=== PATIENT | female | born 1955 | race Caucasian/White ===

== ENCOUNTER → 2016-03-01 | Outpatient (CLI) | payer OTHER ==
--- NOTE | 2016-03-01 12:17 | US ---
Ultrasound Left Axilla HISTORY: Lump x3 months COMPARISON: Mammogram September 01, 2015 FINDINGS: On physical examination there is some subtle thickening in the upper portion of the medial arm just lateral to the axilla. Ultrasound of this area reveals only normal tissue and vascular struc tures. No adenopathy, cyst or solid mass lesion is identified. I also performed ultrasound of the lat eral left breast which was negative. Impression: No sonographic correlate to the "mild thickening". This can be managed clinically. I ment ioned to the patient that if this increases, she can return for follow-up ultrasound imaging. I also asked the patient to retrieve prior outside mammograms, so that we can compare the August 2015 mammogra m to those, to ensure stability. BI-RADS 1. Negative imaging.
== END ==
LOC: BRMIMAGING 11:37
PROVIDERS: ATTEND Obstetrics & Gynecology
DX: R22.2 Localized swelling, mass and lump, trunk (principal)
CPT/HCPCS: 76882-PO